=== PATIENT | female | born 1965 | race Caucasian/White ===

== ENCOUNTER 2024-08-21 04:29 | Day surgery (SDC) | payer BC ==
[2024-08-16 10:01] VITALS: BMI 18.8
[2024-08-21] MEDS ORDERED: MIDAZOLAM HCL 2 MG/2 ML SINGLE DOSE VIAL ONE (12:20)
[2024-08-21] MEDS ORDERED: FENTANYL CITRATE/PF 50 MCG/ML VIAL ONE (12:21)
[2024-08-21] MEDS: FENTANYL CITRATE/PF 50 MCG/ML VIAL IVPUSH ONE (12:58)
[2024-08-21 13:53] VITALS: RESP 18
[2024-08-21 14:13] VITALS: TEMP 97.7
[2024-08-21 15:05] VITALS: BP 123/77; PULSE 96
== END 2024-08-21 15:13 | disposition home or self-care (01) ==
LOC: JRADIR 04:29
PROVIDERS: ATTEND Internal Medicine Pulmonary Disease
PROC: 0BBC3ZX Excision of Right Upper Lung Lobe, Percutaneous Approach, Diagnostic (ICD-10-PCS; principal; 2024-08-21)
DX: C34.11 Malignant neoplasm of upper lobe, right bronchus or lung (principal)
CPT/HCPCS: 32408; 71046-TC-FY; 77012-TC; 88305-TC; 88341-TC; 88342-TC

== ENCOUNTER 2024-10-17 10:14 | Day surgery (SDC) | payer BC ==
[2024-10-17] MEDS: LIDOCAINE 2.5%/PRILOCAINE 2.5% 30 GRAM TUBE TP ONE (10:40)
[2024-10-17] MEDS: SODIUM CHLORIDE 250 ML IV ONE (10:43)
[2024-10-17] MEDS: FAMOTIDINE 20 MG/50 ML IVPB 20 MG/50 ML MG IVPB ONE (11:24)
[2024-10-17] MEDS: FOSAPREPITANT DIMEGLUMINE 150 MG in SODIUM CHLORIDE 145 ML IVPB ONE (11:56)
[2024-10-17] MEDS: PALONOSETRON HCL 0.25 MG/5 ML VIAL IVPUSH ONE (11:58)
[2024-10-17] MEDS: DEXAMETHASONE SODIUM PHOSPHATE 12 MG, DIPHENHYDRAMINE 25 MG in SODIUM CHLORIDE 100 ML IVPB ONE (12:40)
[2024-10-17] MEDS: SODIUM CHLORIDE IVPB ONE ×2 (13:20→16:27)
[2024-10-17] MEDS: PACLITAXEL IVPB ONE (13:20)
[2024-10-17] MEDS: CARBOPLATIN IVPB ONE (16:27)
[2024-10-17 18:55] VITALS: BP 117/70; PULSE 96; RESP 20; TEMP 97.8
[2024-10-17] MEDS ORDERED: PORTA CATH FLUSH 10 ML IVPUSH PRN (18:55)
== END 2024-10-17 17:27 | disposition home or self-care (01) ==
LOC: JONCCHEMO 10:14
PROVIDERS: ATTEND Internal Medicine Hematology & Oncology
DX: Z51.11 Encounter for antineoplastic chemotherapy (principal); C34.91 Malignant neoplasm of unspecified part of right bronchus or lung
CPT/HCPCS: J1453

== ENCOUNTER 2024-11-07 08:06 | Day surgery (SDC) | payer BC ==
[2024-11-07] MEDS: SODIUM CHLORIDE 250 ML IV ONE (09:38)
[2024-11-07 09:46] LABS: BASO % 0.2 % (0-2.0); EOS % 0.1 % (0-4.5); HEMOGLOBIN 11.2 GM/dL (10.7-15.3); LYMPH % 11.1 % (8-40); MCH 26.8 pg (25.7-33.7); MEAN CELL VOLUME 81.2 fl (80-96); MONO % 0.6 % (3.8-10.2); PLATELET COUNT 170 10^3/uL (134-434); RBC 4.18 M/mm3 (3.60-5.2); RDW 16.2 % (11.6-15.6); WHITE BLOOD COUNT 4.9 K/mm3 (4.0-10.0)
[2024-11-07 10:00] LABS: POTASSIUM 4.2 mmol/L (3.5-5.1)
[2024-11-07 10:01] LABS: AMYLASE 98 U/L (25-115)
[2024-11-07 10:02] LABS: ALBUMIN 3.8 g/dl (3.4-5.0); BLOOD UREA NITROGEN 25.6 mg/dL (7-18); CALCIUM 9.8 mg/dL (8.5-10.1)
[2024-11-07 10:05] LABS: CREATININE 0.8 mg/dL (0.55-1.3)
[2024-11-07 10:07] LABS: BILIRUBIN,TOTAL 0.3 mg/dL (0.2-1); TOT PROT 8.6 g/dl (6.4-8.2)
[2024-11-07] MEDS: FOSAPREPITANT DIMEGLUMINE 150 MG in SODIUM CHLORIDE 145 ML IVPB ONE (10:29)
[2024-11-07] MEDS: PALONOSETRON HCL 0.25 MG/5 ML VIAL IVPUSH ONE (11:07)
[2024-11-07] MEDS: FAMOTIDINE 20 MG/50 ML IVPB 20 MG/50 ML MG IVPB ONE (11:07)
[2024-11-07] MEDS ORDERED: SODIUM CHLORIDE IVPB ONE (11:30)
[2024-11-07] MEDS ORDERED: CARBOPLATIN IVPB ONE (11:30)
[2024-11-07] MEDS: DEXAMETHASONE SODIUM PHOSPHATE 12 MG, DIPHENHYDRAMINE 25 MG in SODIUM CHLORIDE 100 ML IVPB ONE (11:39)
[2024-11-07] MEDS: ACETAMINOPHEN 325 MG TABLET (FP) PO ONE (12:05)
[2024-11-07] MEDS: SODIUM CHLORIDE IVPB ONE ×2 (12:19→15:51)
[2024-11-07] MEDS: PACLITAXEL IVPB ONE (12:19)
[2024-11-07] MEDS: CARBOPLATIN IVPB ONE (15:51)
[2024-11-07 17:38] VITALS: BP 119/68; PULSE 101; RESP 18; TEMP 97.9
[2024-11-07] MEDS ORDERED: PORTA CATH FLUSH 10 ML IVPUSH PRN (17:38)
== END 2024-11-07 16:35 | disposition home or self-care (01) ==
LOC: J7W 08:06 → JONCCHEMO 08:06
PROVIDERS: ATTEND Internal Medicine Hematology & Oncology
DX: Z51.11 Encounter for antineoplastic chemotherapy (principal); C34.11 Malignant neoplasm of upper lobe, right bronchus or lung
CPT/HCPCS: 36415; 80053; 82150; 82533; 83690; 83735; 84436; 84443; 85025; 96367; 96375; 96413; 96415; 96417; J1453

== ENCOUNTER 2024-11-08 09:00 | Day surgery (SDC) | payer BC ==
[2024-11-08] MEDS: SODIUM CHLORIDE 250 ML IV ONE (09:12)
[2024-11-08] MEDS: PEMBROLIZUMAB 200 MG in SODIUM CHLORIDE 100 ML IVPB ONE (10:42)
[2024-11-08] MEDS: PORTA CATH FLUSH 10 ML IVPUSH PRN (11:20)
[2024-11-08 16:07] VITALS: BP 123/60; PULSE 92; RESP 20; TEMP 97.7
== END 2024-11-08 11:25 | disposition home or self-care (01) ==
LOC: JONCCHEMO 09:00 → J7W 10:15 → JONCCHEMO 11:25
PROVIDERS: ATTEND Internal Medicine Hematology & Oncology
DX: Z51.11 Encounter for antineoplastic chemotherapy (principal); C34.11 Malignant neoplasm of upper lobe, right bronchus or lung
CPT/HCPCS: 82962; 96413; J9271

== ENCOUNTER 2024-11-28 09:12 | Day surgery (SDC) | payer BC ==
[2024-11-28] MEDS: SODIUM CHLORIDE 250 ML IV ONE (09:51)
[2024-11-28] MEDS: PALONOSETRON HCL 0.25 MG/5 ML VIAL IVPUSH ONE (10:08)
[2024-11-28] MEDS: FAMOTIDINE 20 MG/50 ML IVPB 20 MG/50 ML MG IVPB ONE (10:11)
[2024-11-28] MEDS: FOSAPREPITANT DIMEGLUMINE 150 MG in SODIUM CHLORIDE 145 ML IVPB ONE (11:08)
[2024-11-28] MEDS: DEXAMETHASONE SODIUM PHOSPHATE 12 MG, DIPHENHYDRAMINE 25 MG in SODIUM CHLORIDE 100 ML IVPB ONE (11:51)
[2024-11-28] MEDS: PACLITAXEL IVPB ONE (12:27)
[2024-11-28] MEDS: SODIUM CHLORIDE IVPB ONE ×2 (12:27→15:22)
[2024-11-28] MEDS: CARBOPLATIN IVPB ONE (15:22)
[2024-11-28 16:18] VITALS: BP 150/75; PULSE 101; RESP 20; TEMP 97.3
[2024-11-28] MEDS ORDERED: PORTA CATH FLUSH 10 ML IVPUSH PRN (16:18)
== END 2024-11-28 16:15 | disposition home or self-care (01) ==
LOC: J7W 09:12 → JONCCHEMO 09:12
PROVIDERS: ATTEND Internal Medicine Hematology & Oncology
PROC: 3E04305 Introduction of Other Antineoplastic into Central Vein, Percutaneous Approach (ICD-10-PCS; principal; 2024-11-28)
PROC: 3E0433Z Introduction of Anti-inflammatory into Central Vein, Percutaneous Approach (ICD-10-PCS; 2024-11-28)
DX: Z51.11 Encounter for antineoplastic chemotherapy (principal); C34.11 Malignant neoplasm of upper lobe, right bronchus or lung
CPT/HCPCS: 96367; 96368; 96413; 96417; J1453

== ENCOUNTER 2024-11-29 09:11 | Day surgery (SDC) | payer BC ==
[2024-11-29] MEDS: SODIUM CHLORIDE 250 ML IV ONE (09:20)
[2024-11-29] MEDS: PEMBROLIZUMAB 200 MG in SODIUM CHLORIDE 100 ML IVPB ONE (10:09)
[2024-11-29] MEDS: PORTA CATH FLUSH 10 ML IVPUSH PRN (10:45)
[2024-11-29 17:16] VITALS: TEMP 97.7
[2024-11-29 17:22] VITALS: BP 141/72; PULSE 81; RESP 16
== END 2024-11-29 10:45 | disposition home or self-care (01) ==
LOC: JONCCHEMO 09:11 → J7W 10:34 → JONCCHEMO 10:45
PROVIDERS: ATTEND Internal Medicine Hematology & Oncology
DX: Z51.11 Encounter for antineoplastic chemotherapy (principal); C34.11 Malignant neoplasm of upper lobe, right bronchus or lung
CPT/HCPCS: 96413; J9271

== ENCOUNTER 2024-12-13 09:09 | Day surgery (SDC) | payer BC ==
[2024-12-13] MEDS: TBO-FILGRASTIM 300 MCG/0.5 ML DISP.SYRINGE SQ ONE (09:57)
[2024-12-13 16:33] VITALS: BP 125/62; PULSE 81; RESP 20; TEMP 97.2
== END 2024-12-13 10:00 | disposition home or self-care (01) ==
LOC: JONCNONCHE 09:09 → J7W 09:24 → JONCNONCHE 10:00
PROVIDERS: ATTEND Internal Medicine Hematology & Oncology
PROC: 3E013GC Introduction of Other Therapeutic Substance into Subcutaneous Tissue, Percutaneous Approach (ICD-10-PCS; principal; 2024-12-13)
DX: C34.11 Malignant neoplasm of upper lobe, right bronchus or lung (principal); Z76.89 Persons encountering health services in other specified circumstances
CPT/HCPCS: 96372; J1447

== ENCOUNTER 2024-12-14 09:26 | Day surgery (SDC) | payer BC ==
[2024-12-14] MEDS: TBO-FILGRASTIM 300 MCG/0.5 ML DISP.SYRINGE SQ ONE (09:25)
[2024-12-14 09:50] VITALS: BP 116/63; PULSE 84; RESP 18; TEMP 97.8
== END 2024-12-14 09:45 | disposition home or self-care (01) ==
LOC: JONCCHEMO 09:26 → J7W 09:31 → JONCCHEMO 09:45
PROVIDERS: ATTEND Internal Medicine Hematology & Oncology
PROC: 3E013GC Introduction of Other Therapeutic Substance into Subcutaneous Tissue, Percutaneous Approach (ICD-10-PCS; principal; 2024-12-14)
DX: C34.11 Malignant neoplasm of upper lobe, right bronchus or lung (principal); Z76.89 Persons encountering health services in other specified circumstances
CPT/HCPCS: 96372; J1447

== ENCOUNTER 2024-12-19 09:27 | Day surgery (SDC) | payer BC ==
[2024-12-19] MEDS: SODIUM CHLORIDE 250 ML IV ONE (10:11)
[2024-12-19] MEDS: FOSAPREPITANT DIMEGLUMINE 150 MG in SODIUM CHLORIDE 145 ML IVPB ONE (10:53)
[2024-12-19] MEDS: FAMOTIDINE 20 MG/50 ML IVPB 20 MG/50 ML MG IVPB ONE (11:39)
[2024-12-19] MEDS: PALONOSETRON HCL 0.25 MG/5 ML VIAL IVPUSH ONE (11:39)
[2024-12-19] MEDS: DEXAMETHASONE SODIUM PHOSPHATE 12 MG, DIPHENHYDRAMINE 25 MG in SODIUM CHLORIDE 100 ML IVPB ONE (12:37)
[2024-12-19] MEDS: PACLITAXEL 300 MG in SODIUM CHLORIDE 500 ML IVPB ONE (13:18)
[2024-12-19] MEDS: SODIUM CHLORIDE IVPB ONE (16:35)
[2024-12-19] MEDS: CARBOPLATIN IVPB ONE (16:35)
[2024-12-19 17:13] VITALS: TEMP 97.6
[2024-12-19] MEDS: PORTA CATH FLUSH 10 ML IVPUSH PRN (17:15)
[2024-12-19 17:29] VITALS: BP 118/62; PULSE 71; RESP 18
== END 2024-12-19 17:20 | disposition home or self-care (01) ==
LOC: JONCCHEMO 09:27 → J7W 09:28 → JONCCHEMO 17:20
PROVIDERS: ATTEND Internal Medicine Hematology & Oncology
PROC: 3E04305 Introduction of Other Antineoplastic into Central Vein, Percutaneous Approach (ICD-10-PCS; principal; 2024-12-19)
PROC: 3E043GC Introduction of Other Therapeutic Substance into Central Vein, Percutaneous Approach (ICD-10-PCS; 2024-12-19)
DX: Z51.11 Encounter for antineoplastic chemotherapy (principal); C34.11 Malignant neoplasm of upper lobe, right bronchus or lung
CPT/HCPCS: 96374; 96375; 96413; 96415; 96417; J1453

== ENCOUNTER 2024-12-20 09:41 | Day surgery (SDC) | payer BC ==
[2024-12-20] MEDS: SODIUM CHLORIDE 250 ML IV ONE (10:15)
[2024-12-20] MEDS: PEMBROLIZUMAB 200 MG in SODIUM CHLORIDE 100 ML IVPB ONE (10:51)
[2024-12-20 11:55] VITALS: RESP 20
[2024-12-20 11:57] VITALS: TEMP 98.1
[2024-12-20 12:01] VITALS: BP 127/69; PULSE 75
[2024-12-20] MEDS ORDERED: PORTA CATH FLUSH 10 ML IVPUSH PRN (12:01)
== END 2024-12-20 11:30 | disposition home or self-care (01) ==
LOC: JONCCHEMO 09:41 → J7W 09:42 → JONCCHEMO 11:30
PROVIDERS: ATTEND Internal Medicine Hematology & Oncology
DX: Z51.12 Encounter for antineoplastic immunotherapy (principal)
CPT/HCPCS: 96413; J9271

== ENCOUNTER 2025-04-08 17:06 | Observation (INO) | payer BC ==
[2025-04-08 18:02] LABS: BG HCT 34.0 % (32.4-45.2); VENOUS BASE EXCESS 0.9 mmol/L (-2-2); VENOUS O2 SATURATION 54.2 % (70-80); VENOUS PCO2 41.7 mmHg (38-52); VENOUS PH 7.408 (7.310-7.410)
[2025-04-08 18:03] LABS: ABSOLUTE IMMATURE GRANULOCYTES 0.02 x10^3/uL (0.0-0.031); BASOPHILS # 0.02 x10^3/uL (0.01-0.08); EOSINOPHIL % 0.2 % (0.7-5.8); EOSINOPHILS # 0.01 x10^3/uL (0.04-0.36); MCHC 32.4 g/dl (32.2-35.5); MEAN CELL VOLUME 87.2 fl (79.4-94.8); MEAN PLT VOLUME 10.8 fl (9.4-12.3); MONOCYTE # 0.30 x10^3/uL (0.24-0.86); MONOCYTE % 6.0 % (4.7-12.5); RDW 12.5 % (12.3-16.6)
[2025-04-08 18:06] LABS: EPI CELLS 11 /uL (0-25.1); HYALINE CASTS 0 /uL (0-3.1); URINE APPEARANCE CLEAR; URINE BACTERIA 15 /uL (0-1359); URINE BILIRUBIN NEGATIVE (NEGATIVE); URINE COLOR YELLOW; URINE GLUCOSE (UA) NEGATIVE (NEGATIVE); URINE KETONE NEGATIVE (NEGATIVE); URINE LEUK ESTERASE 2+ (NEGATIVE); URINE NITRITE NEGATIVE (NEGATIVE); URINE PROTEIN NEGATIVE (NEGATIVE); URINE RBC 3 /uL (0-23.9); URINE UROBILINOGEN 0.2 mg/dL (0.2-1.0); URINE WBC 24 /uL (0-25.8)
[2025-04-08 18:10] LABS: INR 1.19 (0.83-1.09); PROTHROMBIN TIME (PATIENT) 13.0 SEC (9.7-13.0)
[2025-04-08 18:13] LABS: ACTIVATED PTT 31.2 SECONDS (25.2-36.5)
[2025-04-08 18:24] LABS: CO2 29.0 mmol/L (21-32); GLUCOSE,RANDOM 98.0 mg/dL (74-106)
[2025-04-08 18:26] LABS: SGPT/ALT 28.0 U/L (13-61)
[2025-04-08 18:27] LABS: CREATININE 0.7 mg/dL (0.55-1.3); SGOT/AST 31.0 U/L (15-37)
[2025-04-08 18:28] LABS: TOT PROT 8.6 g/dl (6.4-8.2)
[2025-04-08 18:29] LABS: ALK PHOS 120.0 U/L (45-117)
[2025-04-08 18:32] LABS: N-TERMINAL BNP 120.1 pg/ml (5-125)
[2025-04-08] MEDS ORDERED: ACETAMINOPHEN 325 MG TABLET (FP) PO PRN (19:51)
[2025-04-08] MEDS ORDERED: POLYETHYLENE GLYCOL (HEALTHYLAX) 3350 17 GM PACKET PO PRN (19:55)
[2025-04-09] MEDS: CIPROFLOXACIN 250 MG TABLET (RESTRICTED TO ID) PO ONE (06:38)
[2025-04-09 06:46] LABS: MCHC 31.9 g/dl (32.2-35.5); MEAN CELL VOLUME 88.0 fl (79.4-94.8); MEAN PLT VOLUME 11.1 fl (9.4-12.3); RDW 12.5 % (12.3-16.6)
[2025-04-09 07:17] LABS: CO2 30.0 mmol/L (21-32); GLUCOSE,RANDOM 98.0 mg/dL (74-106)
[2025-04-09 07:20] LABS: CREATININE 0.7 mg/dL (0.55-1.3); SGOT/AST 25.0 U/L (15-37); SGPT/ALT 26.0 U/L (13-61)
[2025-04-09 07:21] LABS: TOT PROT 8.4 g/dl (6.4-8.2)
[2025-04-09 07:23] LABS: ALK PHOS 97.0 U/L (45-117)
[2025-04-09 18:30] VITALS: BMI 20.1
[2025-04-10] MEDS ORDERED: REGADENOSON 0.4 MG/5 ML PRE-FILLED SYRINGE IVPUSH ONE (08:28)
[2025-04-10] MEDS: REGADENOSON 0.4 MG/5 ML PRE-FILLED SYRINGE IVPUSH ONE (09:50)
[2025-04-10] MEDS: IRON SUCROSE INJECTION 200 MG in SODIUM CHLORIDE 100 ML IVPB ONE (14:45)
[2025-04-10 15:32] VITALS: BP 108/63; PULSE 60; RESP 18; TEMP 98.4
== END 2025-04-10 16:34 | disposition home or self-care (01) ==
LOC: JER 17:06 → JERBED 17:32 → J4S 04-09 14:10
PROVIDERS: ADMIT Family Medicine; ATTEND Family Medicine
PROC: 3E033GC Introduction of Other Therapeutic Substance into Peripheral Vein, Percutaneous Approach (ICD-10-PCS; principal; 2025-04-08)
DX: I47.20 Ventricular tachycardia, unspecified (principal); C34.90 Malignant neoplasm of unspecified part of unspecified bronchus or lung; Z88.0 Allergy status to penicillin; Z87.891 Personal history of nicotine dependence
CPT/HCPCS: 36415; 71045-TC-FY; 78452-TC; 80053; 81003; 82803; 83735; 83880; 84100; 84439; 84443; 84484; 85025; 85610; 85730; 86850; 86900; 86901; 87086; 87637-QW; 93005; 93010; 93017; 93306-TC; 99285-25; A9502; G0378; J1756; J2785

== ENCOUNTER 2025-06-05 08:57 | Day surgery (SDC) | payer BC ==
[2025-06-05] MEDS: IRON SUCROSE INJECTION 200 MG in SODIUM CHLORIDE 100 ML IVPB ONE (09:15)
[2025-06-05] MEDS: PORTA CATH FLUSH 10 ML IVPUSH PRN (10:15)
[2025-06-05 12:59] VITALS: TEMP 7.9
[2025-06-05 13:00] VITALS: BP 100/56; PULSE 88; RESP 18
== END 2025-06-05 10:15 | disposition home or self-care (01) ==
LOC: JONCNONCHE 08:57 → J7W 08:58 → JONCNONCHE 10:15
PROVIDERS: ATTEND Internal Medicine Hematology & Oncology
PROC: 3E043GC Introduction of Other Therapeutic Substance into Central Vein, Percutaneous Approach (ICD-10-PCS; principal; 2025-06-05)
DX: C34.11 Malignant neoplasm of upper lobe, right bronchus or lung (principal)
CPT/HCPCS: 96365; J1756

== ENCOUNTER 2025-07-10 10:30 | Day surgery (SDC) | payer OTHER ==
[2025-07-10] MEDS: SODIUM CHLORIDE 250 ML IV ONE (11:06)
[2025-07-10] MEDS: FOSAPREPITANT DIMEGLUMINE 150 MG in SODIUM CHLORIDE 145 ML IVPB ONE (11:07)
[2025-07-10] MEDS: PALONOSETRON HCL 0.25 MG/5 ML VIAL IVPUSH ONE (11:41)
[2025-07-10] MEDS: DEXAMETHASONE SODIUM PHOSPHATE 12 MG, DIPHENHYDRAMINE 25 MG in SODIUM CHLORIDE 100 ML IVPB ONE (11:44)
[2025-07-10 11:48] VITALS: RESP 18; TEMP 98.5
[2025-07-10] MEDS: PACLITAXEL PROTEIN BOUND IVPB ONE (12:22)
[2025-07-10] MEDS: SODIUM CHLORIDE IVPB ONE (12:22)
[2025-07-10] MEDS: SODIUM CHLORIDE IV ONE (13:15)
[2025-07-10] MEDS: CARBOPLATIN IV ONE (13:15)
[2025-07-10] MEDS: PORTA CATH FLUSH 10 ML IVPUSH PRN (14:00)
[2025-07-10 14:05] VITALS: BP 96/63; PULSE 72
== END 2025-07-10 14:10 | disposition home or self-care (01) ==
LOC: JONCCHEMO 10:30
PROVIDERS: ATTEND Internal Medicine Hematology & Oncology
DX: Z51.11 Encounter for antineoplastic chemotherapy (principal); C34.11 Malignant neoplasm of upper lobe, right bronchus or lung
CPT/HCPCS: 96367; 96375; 96413; 96417; J1453; J9264